=== PATIENT | female | born 1990 | race African-American/Black ===

== ENCOUNTER 2019-03-06 09:46 | Emergency (ER) | payer MEDICAID ==
[~2019-03-06] VITALS: Ht 175.3 cm; Wt 77.3 kg
[~2019-03-06 09:46] MED LIST: FERROUS SULFAT325 MG PO; HYDROCODON-ACE1 EAC7 PO; IBUPROFEN600 MG PO; PRENAVITE1 TAB; PRENAVITE1 TAB PO
[2019-03-06 10:06] VITALS: Ht 175.3 cm; Wt 77.3 kg
[2019-03-06] MEDS ORDERED: PHENERGAN25 M1 PO (10:08)
[2019-03-06 10:31] LABS: BASOPHILS 0.3 % (0-2); EOSINOPHILS 4.6 % (0-7); HEMATOCRIT 35.8 % (36.0-48.0); HEMOGLOBIN 12.8 g/dL (12-16); IMMATURE GRANULOCYTES 0.2 % (0-5); LYMPHOCYTES 21.2 % (15-50); MCH 30.6 pg (26.0-34.0); MCHC 35.8 g/dL (31.0-37.0); MCV 85.6 fL (80.0-100.0); MEAN PLATELET VOLUME 11.4 fL (7.4-10.4); MONOCYTES 6.7 % (2-11); PLATELET COUNT 145 10x3/uL (130-400); RBC 4.18 10x6/uL (4.00-5.40); RDW 14.1 % (11.5-14.5); WBC 6.1 10x3/uL (4.8-10.8)
[2019-03-06 10:53] LABS: ALBUMIN 3.5 g/dL (3.4-5.0); ALKALINE PHOSPHATASE 54 U/L (46-116); ALT (SGPT) 17 U/L (10-68); BILIRUBIN - TOTAL 0.32 mg/dL (0.2-1.3); CALC OSMOLALITY 267 mosm/kg (275-300); CALCIUM 8.5 mg/dL (8.5-10.1); CARBON DIOXIDE 24.3 mmol/L (21.0-32.0); CHLORIDE - SERUM 103 mmol/L (98-107); CREATININE - SERUM 0.7 mg/dL (0.6-1.3); GLUCOSE 84 mg/dL (74-106); POTASSIUM - SERUM 3.4 mmol/L (3.5-5.1); PROTEIN - SERUM 7.8 g/dL (6.4-8.2); SODIUM 136 mmol/L (136-145); UREA NITROGEN 5 mg/dL (7-18); eGFR NON AFRICAN AMERICAN > 90 mL/min (90-120)
[2019-03-06 11:20] LABS: HCG - QUANTITATIVE (MATERNAL) 73652 mIU/mL
[2019-03-06 11:36] LABS: APPEARANCE HAZY (CLEAR); BILIRUBIN NEGATIVE (NEGATIVE); COLOR YELLOW (YELLOW); GLUCOSE NEGATIVE (NEGATIVE); KETONE NEGATIVE (NEGATIVE); NITRITE NEGATIVE (NEGATIVE); PROTEIN NEGATIVE (NEGATIVE); SPECIFIC GRAVITY 1.015 (1.005-1.020); UROBILINOGEN NORMAL (NORMAL); WHITE CELLS - URINE 0-5 /hpf (0-5)
[2019-03-06 11:37] LABS: BACTERIA FEW /hpf (NONE SEEN); EPITHELIAL CELLS 0-5 /hpf (0-5)
[2019-03-06 12:19] VITALS: BP 129/73
== END 2019-03-06 12:25 | disposition home or self-care (01) ==
LOC: D.ER 09:46
PROVIDERS: Family Medicine
DX: O20.9 Hemorrhage in early pregnancy, unspecified (principal); Z3A.10 10 weeks gestation of pregnancy

== ENCOUNTER 2019-04-02 02:30 | Emergency (ER) | payer MEDICAID ==
[~2019-04-02] VITALS: Ht 175.3 cm; Wt 75.0 kg
[~2019-04-02 02:30] MED LIST changes: +PHENERGAN25 M1 PO
[2019-04-02 02:33] VITALS: Ht 175.3 cm; Wt 75.0 kg
[2019-04-02 03:24] LABS: BASOPHILS 0.1 % (0-2); EOSINOPHILS 1.9 % (0-7); HEMOGLOBIN 12.6 g/dL (12-16); IMMATURE GRANULOCYTES 0.3 % (0-5); MCH 30.6 pg (26.0-34.0); MEAN PLATELET VOLUME 11.7 fL (7.4-10.4); MONOCYTES 8.4 % (2-11); NEUTROPHILS 73.3 % (40-80); PLATELET COUNT 158 10x3/uL (130-400); RBC 4.12 10x6/uL (4.00-5.40); RDW 13.8 % (11.5-14.5); WBC 9.3 10x3/uL (4.8-10.8)
[2019-04-02 03:42] LABS: ALBUMIN 3.3 g/dL (3.4-5.0); ALKALINE PHOSPHATASE 65 U/L (46-116); ALT (SGPT) 14 U/L (10-68); CALC OSMOLALITY 269 mosm/kg (275-300); CALCIUM 9.2 mg/dL (8.5-10.1); CARBON DIOXIDE 28.2 mmol/L (21.0-32.0); CHLORIDE - SERUM 100 mmol/L (98-107); CREATININE - SERUM 0.7 mg/dL (0.6-1.3); GLUCOSE 89 mg/dL (74-106); POTASSIUM - SERUM 3.6 mmol/L (3.5-5.1); PROTEIN - SERUM 7.8 g/dL (6.4-8.2); SODIUM 136 mmol/L (136-145); UREA NITROGEN 9 mg/dL (7-18); eGFR NON AFRICAN AMERICAN > 90 mL/min (90-120)
[2019-04-02 04:00] LABS: HCG - QUANTITATIVE (MATERNAL) 49503 mIU/mL
[2019-04-02 04:31] VITALS: BP 140/86
== END 2019-04-02 04:30 | disposition home or self-care (01) ==
LOC: D.ER 02:30
PROVIDERS: Family Medicine
DX: O20.0 Threatened abortion (principal); Z3A.13 13 weeks gestation of pregnancy

== ENCOUNTER → 2019-04-13 10:35 | Outpatient (CLI) | payer MEDICAID ==
[2019-04-02 02:33] VITALS: BMI 24.4
[2019-04-13 12:47] LABS: BASOPHILS 0.3 % (0-2); EOSINOPHILS 3.6 % (0-7); HEMATOCRIT 31.6 % (36.0-48.0); HEMOGLOBIN 11.3 g/dL (12-16); IMMATURE GRANULOCYTES 0.1 % (0-5); LYMPHOCYTES 17.7 % (15-50); MCH 30.5 pg (26.0-34.0); MCHC 35.8 g/dL (31.0-37.0); MCV 85.2 fL (80.0-100.0); MEAN PLATELET VOLUME 12.1 fL (7.4-10.4); MONOCYTES 7.8 % (2-11); NEUTROPHILS 70.5 % (40-80); PLATELET COUNT 151 10x3/uL (130-400); RBC 3.71 10x6/uL (4.00-5.40); RDW 13.4 % (11.5-14.5); WBC 7.9 10x3/uL (4.8-10.8)
[2019-04-13 13:01] LABS: APPEARANCE CLEAR (CLEAR); BILIRUBIN NEGATIVE (NEGATIVE); COLOR STRAW (YELLOW); GLUCOSE NEGATIVE (NEGATIVE); KETONE NEGATIVE (NEGATIVE); NITRITE NEGATIVE (NEGATIVE); PROTEIN NEGATIVE (NEGATIVE); SPECIFIC GRAVITY 1.005 (1.005-1.020); UROBILINOGEN NORMAL (NORMAL)
[2019-04-13 13:03] LABS: UDS - AMPHET NEGATIVE QUAL (NEGATIVE); UDS - BARB NEGATIVE QUAL (NEGATIVE); UDS - BENZO NEGATIVE QUAL (NEGATIVE); UDS - COCAINE NEGATIVE QUAL (NEGATIVE); UDS - OPIATE NEGATIVE QUAL (NEGATIVE); UDS - PCP NEGATIVE QUAL (NEGATIVE); UDS - THC NEGATIVE QUAL (NEGATIVE)
== END | disposition home or self-care (01) ==
LOC: D.LDO 10:35
PROVIDERS: ATTEND Obstetrics & Gynecology
DX: O26.899 Other specified pregnancy related conditions, unspecified trimester (principal); Z3A.00 Weeks of gestation of pregnancy not specified

== ENCOUNTER 2019-04-13 21:08 | Outpatient (CLI) | payer MEDICAID ==
[2019-04-02 02:33] VITALS: BMI 24.4
[2019-04-14 07:08] LABS: BASOPHILS 0.1 % (0-2); EOSINOPHILS 3.8 % (0-7); HEMOGLOBIN 10.8 g/dL (12-16); IMMATURE GRANULOCYTES 0.3 % (0-5); LYMPHOCYTES 20.1 % (15-50); MCH 29.6 pg (26.0-34.0); MCHC 34.8 g/dL (31.0-37.0); MCV 84.9 fL (80.0-100.0); MEAN PLATELET VOLUME 11.9 fL (7.4-10.4); MONOCYTES 8.9 % (2-11); NEUTROPHILS 66.8 % (40-80); PLATELET COUNT 153 10x3/uL (130-400); RBC 3.65 10x6/uL (4.00-5.40); RDW 13.3 % (11.5-14.5); WBC 7.5 10x3/uL (4.8-10.8)
== END 2019-04-14 08:50 | disposition home or self-care (01) ==
LOC: D.LDO 21:08 → D.LD 22:59 → D.LDO 04-14 08:50
PROVIDERS: ATTEND Obstetrics & Gynecology
DX: O26.899 Other specified pregnancy related conditions, unspecified trimester (principal)

== ENCOUNTER 2019-04-22 13:19 | Inpatient (IN) | payer MEDICAID ==
[~2019-04-22] VITALS: Ht 175.3 cm; Wt 79.4 kg
[2019-04-22 14:32] LABS: INR 1.04 (0.85-1.17); PROTIME 13.1 SECONDS (11.6-15.0)
[2019-04-22 14:38] VITALS: BP 123/69; Ht 175.3 cm; Wt 79.4 kg
[2019-04-22 14:59] LABS: HEMATOCRIT 30.9 % (36.0-48.0); HEMOGLOBIN 11.1 g/dL (12-16); MCH 30.6 pg (26.0-34.0); MCHC 35.9 g/dL (31.0-37.0); MCV 85.1 fL (80.0-100.0); RBC 3.63 10x6/uL (4.00-5.40); RDW 13.5 % (11.5-14.5); WBC 7.3 10x3/uL (4.8-10.8)
--- NOTE | 2019-04-22 23:49 | NUR ---
PT MEDICATED FOR CRAMPING. PAIN LEVEL OF 6 AT THIS TIME. WILL CONTIUE TO MONITOR. Marbella UMAÑA RN
--- NOTE | 2019-04-23 01:05 | NUR ---
PT STATES PAIN LEVEL IS DECREASED TO 3 AT THIS TIME. Marbella UMAÑA RN
--- NOTE | 2019-04-23 03:00 | NUR ---
PT RESTING COMFORTABLY AT THIS TIME. RESPS EVEN AND UNLABORED. Marbella UMAÑA RN
--- NOTE | 2019-04-23 05:15 | NUR ---
BLOOD DRAWN AND TO LAB PERSONNEL AT THIS TIME. VITAL SIGNS DONE AT THIS TIME. Marbella UMAÑA RN.
[2019-04-23 05:22] VITALS: BP 139/93
--- NOTE | 2019-04-23 05:47 | NUR ---
PT MEDICATED FOR PAIN AT THIS TIME FOR PAIN LEVEL OF 6.WILL CONTINUE TO MONITOR. Marbella UMAÑA RN
[2019-04-23 05:49] VITALS: BP 115/68
[2019-04-23 06:51] LABS: BASOPHILS 0.2 % (0-2); EOSINOPHILS 2.2 % (0-7); HEMATOCRIT 29.8 % (36.0-48.0); HEMOGLOBIN 10.8 g/dL (12-16); IMMATURE GRANULOCYTES 0.1 % (0-5); LYMPHOCYTES 21.2 % (15-50); MCH 30.5 pg (26.0-34.0); MCHC 36.2 g/dL (31.0-37.0); MCV 84.2 fL (80.0-100.0); MEAN PLATELET VOLUME 13.6 fL (7.4-10.4); MONOCYTES 7.8 % (2-11); NEUTROPHILS 68.5 % (40-80); PLATELET COUNT 131 10x3/uL (130-400); RBC 3.54 10x6/uL (4.00-5.40); RDW 13.5 % (11.5-14.5); WBC 8.1 10x3/uL (4.8-10.8)
--- NOTE | 2019-04-23 06:54 | NUR ---
PT MEDICATED WITH MOTRIN FOR PAIN LEVEL OF 6-7. WILL MONITOR. Marbella UMAÑA RN
[2019-04-23 07:20] VITALS: BP 119/77
--- NOTE | 2019-04-23 08:30 | NUR ---
up to shower.
--- NOTE | 2019-04-23 10:09 | NUR ---
REQUESTING PAIN MEDICATION- CO CRAMPING AND RATES PAIN A 6 ON SCALE OF 0-10. MED GIVEN.
--- NOTE | 2019-04-23 10:11 | NUR ---
STATES THAT HAS SOME SPOTTING - NOT MUCH LOCHIA.
--- NOTE | 2019-04-23 12:15 | NUR ---
REPORT FROM ELI GU RN
[2019-04-23 12:40] VITALS: BP 134/81
--- NOTE | 2019-04-23 12:40 | NUR ---
ASSESSMENT PER FLOW SHEET, VS OBTAINED, SALINE LOCK IN LEFT HAND INTACT WITH NO REDNESS OR EDEMA, PT REPORTS FLATUS, NO BM, VOIDING WITH NO DIFFICULTY, AND SCANT VAG BLEEDING, PT STATES "I HARDLY HAVE ANY", PT RATES PAIN 3/10, DENIES NEED AT THIS TIME FOR PAIN MED, PT REQUESTS DIFFERENT LUNCH TRAY, STATES "I DON'T LIKE ANY OF THAT", INFORMED PT THAT I WILL CALL THE [facility] FOR HER, PT VERBALIZES UNDERSTANDING, DENIES FURTHER NEEDS, S/O AT BEDSIDE
--- NOTE | 2019-04-23 13:00 | NUR ---
[facility] DELIVERS LUNCH TRAY
--- NOTE | 2019-04-23 13:30 | NUR ---
PT FINISHED WITH LUNCH TRAY, PT GETTING READY TO TAKE A WALK, INFORMED PT THAT WAS FINE, AND ALSO INFORMED PT THAT I WILL BE MOVING HER TO ANOTHER ROOM, PT VERBALIZES UNDERSTANDING
--- NOTE | 2019-04-23 13:45 | NUR ---
PT BACK TO ROOM, PT TRANSFERRED VIA AMB TO ROOM 1257, ALL BELONGINGS WITH PT, S/O AT SIDE, PT ORIENTED TO ROOM, BATH TOWELS PROVIDED TO PT, AND BEDDING PROVIDED TO FOB, FOB SHOWN NOURISHMENT CENTER AND OUT TO THE FRONT ENTRANCE, SANDWICH TRAY SERVED TO PT BECAUSE PT STATES "THEY ONLY GAVE ME 3 CHICKEN STRIPS", PT DENIES FURTHER NEEDS
--- NOTE | 2019-04-23 14:10 | NUR ---
PT SITTING UP IN BED, SCD'S APPLIED AND WORKING PROPERLY, S/O AT BEDSIDE
--- NOTE | 2019-04-23 14:57 | NUR ---
PT CIRCLE BEVELER LIGHT, C/O PAIN AND CRAMPING, ADM MOTRIN AND NORCO PER MD ORDERS, SEE EMAR, PT DENIES FURTHER NEEDS
[2019-04-23 16:22] VITALS: BP 112/70
--- NOTE | 2019-04-23 16:22 | NUR ---
PT VISITING WITH FOB AND FRIEND, VS OBTAINED, PT DENIES NEEDS OR PAIN AT THIS TIME
--- NOTE | 2019-04-23 18:12 | NUR ---
PT OUT OF ROOM AT THIS TIME
--- NOTE | 2019-04-23 19:06 | NUR ---
RESP NOTIFIED FOR EKG
[2019-04-23 19:33] VITALS: BP 132/83
--- NOTE | 2019-04-23 19:33 | NUR ---
SHIFT ASSESSMENT COMPLETED PER FLOWSHEET. VSS. C/O PAIN 5/10 VAGINAL SORENESS AND ABD CRAMPING, NORCO GIVEN PER ORDER AND REQUEST. FUNDUN FIRM, MIDLINE AND U2 WITH SMALL RUBRA LOCHIA, NO CLOTS NOTED. SL TO LT HAND FLUSHES WITHOUT DIFFICULTY, NO S/S OF INFILTRATION NOTED. REPORTS THAT SHE IS VOIDING AND PASSING FLATUS WITHOUT DIFFICULTY. PLAN OF CARE DISCUSSED WITH PT AND SIGNIFICANT OTHER BOTH VERBALIZE UNDERSTANDING. DISCUSSED REMOVAL OF FETUS, PT STATES THAT SHE AND SIGNIFICANT OTHER HAVE BEEN DISCUSSING 2 HOMES IN [place] AND WILL NOTIFY RN WHEN FINAL DECISION IS MADE. EDUCATED PT ON NEED TO WEAR GOOD SUPPORT BRA, AVOIDING BREAST STIMULATION, AND WARM WATER WHEN SHOWERING TO PREVENT BREASTMILK PRODUCTION. EDUCATED ON PERINEAL CARE AND REFRAINING FROM INTERCOURSE AND USING ANYTHING IN VAGINAL VAULT FOR AT LEAST 6 WEEKS, VERBALIZES UNDERSTANDING AND DENIES QUESTIONS. BED IN LOW POSITION WITH UPPER SIDE RAILS RAISED X2. CALL LIGHT AND PHONE WITHIN REACH. WILL CONTINUE TO MONITOR.
--- NOTE | 2019-04-23 20:15 | NUR ---
PAIN REASSESSMENT COMPLETED, 11/16. PT REQUEST [facility] [place] BE CONTACTED FOR REMOVAL OF FETUS. REPORTS THAT SHE JUST VOIDED, SCANT RUBRA LOCHIA NOTED TO PERIPAD, NO CLOTS NOTED. BED IN LOW POSITION WITH UPPER SIDE RAILS RAISED X2. CALL LIGHT AND PHONE WITHIN REACH. PT STATES THAT SHE AND SIGNIFICANT OTHER ARE GOING TO WALK ON UNIT. STEADY GAIT NOTED. WILL CONTINUE TO MONITOR.
--- NOTE | 2019-04-23 20:24 | NUR ---
AI, [employer] FILTERS INSPECTOR OF [facility] NOTIFIED OF NEED FOR FETUS REMOVAL PER PT REQUEST. STATES THAT HE WILL BE EN R[facility] TO [facility].
--- NOTE | 2019-04-23 21:27 | NUR ---
SITTING IN SEMI-FOWLERS POSITION PLAYING ON CELL PHONE AND WATCHING TV. DENIES PAIN AND NEEDS. REFUSES FLUSH TO PIV AT THIS TIME. BED IN LOW POSITION WITH UPPER SIDE RAILS RAISED X2. CALL LIGHT AND PHONE WITHIN REACH. WILL CONTINUE TO MONITOR.
--- NOTE | 2019-04-23 22:26 | NUR ---
[facility] TO UNIT FOR REMOVAL OF FETUS. PT NOTIFIED AND STATES THAT SHE DOES NOT WISH TO SEE INFANT PRIOR TO REMOVAL. RELEASED TO [facility] [employer].
--- NOTE | 2019-04-23 22:37 | NUR ---
SITTING IN SEMI-FOWLERS POSITION WATCHING TV AND LOOKING AT CELL PHONE. DENIES NEEDS AT THIS TIME. BED IN LOW POSITION WITH UPPER SIDE RAILS RAISED X2. CALL LIGHT AND PHONE WITHIN REACH. REFUSES SCD'S. WILL CONTINUE TO MONITOR.
--- NOTE | 2019-04-23 23:27 | NUR ---
C/O VAGINAL SORENESS AND ABD CRAMPING 02/13. NORCO GIVEN PER ORDER AND PT REQUEST. CRANBERRY JUICE PROVIDED. DENIES ADDITIONAL NEEDS. BED IN LOW POSITION WITH UPPER SIDE RAILS RAISED X2. SIGNIFICANT OTHER AT BEDSIDE, SUPPORTIVE AND ATTENTIVE TO PT NEEDS. LT HAND SL REMOVED PER PT REQUEST, TIP INTACT, BANDAID OVER INSERTION SITE.
--- NOTE | 2019-04-24 00:13 | NUR ---
PAIN REASSESSMENT COMPLETED. 10/16. DENIES NEEDS. SIGNIFICANT OTHER RESTING ON COUCH AT BEDSIDE. CONTINUES TO REFUSE SCD'S. BED IN LOW POSITION WITH UPPER SIDE RAILS RAISED X2. CALL LIGHT AND PHONE WITHIN REACH. WILL CONTINUE TO MONITOR AND ASSIST PRN.
--- NOTE | 2019-04-24 02:19 | NUR ---
UP TO BATHROOM AT THIS TIME. SCANT RUBRA LOCHIA, NO CLOTS NOTED. CRANBERRY JUICE PROVIDED PER PT REQUEST. PAIN 3/10, VAGINAL SORENESS AND ABD CRAMPING, MOTRIN OFFERED AND DECLINED. DENIES ADDITIONAL NEEDS. SIGNIFICANT OTHER AT BEDSIDE RESTING. BED IN LOW POSITION WITH UPPER SIDE RAILS RAISED X2. CALL LIGHT AND PHONE WITHIN REACH. WILL CONTINUE TO MONITOR AND ASSIST PRN.
--- NOTE | 2019-04-24 03:32 | NUR ---
C/O VAGINAL SORENESS AND ABD CRAMPING, 04/15. NORCO GIVEN PER ORDER AND PT REQUEST. CRANBERRY JUICE PROVIDED. DENIES ADDITIONAL NEEDS. SIGNIFICANT OTHER RESTING ON COUCH AT BEDSIDE. BED IN LOW POSITION WITH UPPER SIDE RAILS RAISED X2. CALL LIGHT AND PHONE WITHIN REACH. WILL CONTINUE TO MONITOR AND ASSIST PRN. CONTINUES TO REFUSE SCD'S.
--- NOTE | 2019-04-24 04:11 | NUR ---
PAIN REASSESSMENT COMPLETED. PT LAYING ON RIGHT SIDE RESTING WITH EYES CLOSED. RESPIRATIONS REGULAR AND UNLABORED, NO S/S OF DISTRESS NOTED. BED IN LOW POSITION WITH UPPER SIDE RAILS RAISED X2. CALL LIGHT AND PHONE WITHIN REACH. SIGNIFICANT OTHER RESTING ON COUCH AT BEDSIDE. WILL CONTINUE TO MONITOR.
--- NOTE | 2019-04-24 05:55 | NUR ---
LAYING ON LEFT SIDE RESTING WITH EYES CLOSED. AROUSES TO VOICE. REQUESTS TO WAIT FOR D/C UNTIL 0800. DENIES PAIN AND NEEDS AT THIS TIME. BED IN LOW POSITION WITH UPPER SIDE RAILS RAISED X2. CALL LIGHT AND PHONE WITHIN REACH.
[2019-04-24 06:09] LABS: RAPID PLASMA REAGIN Non Reactive (Non Reactive)
[2019-04-24] MEDS ORDERED: HYDROCODON-ACE1 EAC7 PO (06:16)
[2019-04-24] MEDS ORDERED: VIBRAMYCIN 100100 MG PO (06:17)
--- NOTE | 2019-04-24 09:22 | NUR ---
This rn to room to go over discharge instructions. pt has gone back to bed and states "I'm just not ready yet" request that she call when awake and ready. Pain med given per pt request and pain rating at 7/10. side rails up x 2 with call light in reach. Sig other on couch sleeping.
[2019-04-24 09:27] VITALS: BP 123/77
--- NOTE | 2019-04-24 10:00 | NUR ---
PAIN REASSESSMENT, RATES AT 0/10. PT UP WALKING AROUND ROOM STATES SHE IS GOING TO SHOWER THAN WILL BE READY FOR DISCHARGE, REQUEST MADE THAT SHE USE CALL LIGHT WHEN READY FOR NURSE.
--- NOTE | 2019-04-24 10:30 | NUR ---
VERBAL AND WRITTEN D/C INSTUCTIONS GONE OVER. PT PROVIDED WITH WRITTEN SCRIPT FOR NORCO 5/325MG AND DOXCYCLINE WITH PRINTED MED SHEETS ON EACH. SIG OTHER PROVIDED WITH EXCUSE FOR WORK THAT COVERS 04/22/19-04/25/19. PT DENIES ANY QUESTIONS OR CONCERNS AND STATES UNDERSTANDING OF S/S INFECTION AND ELEVATED BP AND TO RETURN TO HOSPTIAL IF SHE HAS ANY OF THESE. REFUSES WHEELCHAIR, WALKED TO FRONT BY THIS RN. HOME WITH SIG OTHER BY PRIVATE CAR.
== END 2019-04-24 10:30 | disposition home or self-care (01) | DRG 807 ==
LOC: D.LD 13:19
PROVIDERS: ADMIT Obstetrics & Gynecology; ATTEND Obstetrics & Gynecology
PROC: 10E0XZZ Delivery of Products of Conception, External Approach (ICD-10-PCS; principal; 2019-04-22)
DX: O41.8X90 Other specified disorders of amniotic fluid and membranes, unspecified trimester, not applicable or unspecified (principal); Z37.0 Single live birth; Z3A.16 16 weeks gestation of pregnancy; P07.01 Extremely low birth weight newborn, less than 500 grams; P07.21 Extreme immaturity of newborn, gestational age less than 23 completed weeks

== ENCOUNTER 2019-08-08 00:23 | Emergency (ER) | payer MEDICAID ==
[~2019-08-08] VITALS: Ht 175.3 cm; Wt 75.0 kg
[~2019-08-08 00:23] MED LIST changes: +VIBRAMYCIN 100100 MG PO
[2019-08-08 00:31] VITALS: Ht 175.3 cm; Wt 75.0 kg
[2019-08-08] MEDS ORDERED: TORADOL10 MG PO (01:14)
[2019-08-08 01:36] VITALS: BP 142/84
== END 2019-08-08 01:36 | disposition home or self-care (01) ==
LOC: D.ER 00:23
DX: S16.1XXA Strain of muscle, fascia and tendon at neck level, initial encounter (principal); V49.9XXA Car occupant (driver) (passenger) injured in unspecified traffic accident, initial encounter

== ENCOUNTER 2019-10-01 20:03 | Emergency (ER) | payer MEDICAID ==
[~2019-10-01] VITALS: Ht 175.3 cm; Wt 74.8 kg
[~2019-10-01 20:03] MED LIST changes: +TORADOL10 MG PO
[2019-10-01 20:37] VITALS: BP 119/74; Ht 175.3 cm; Wt 74.8 kg
[2019-10-01 21:31] LABS: APPEARANCE CLEAR (CLEAR); BILIRUBIN NEGATIVE (NEGATIVE); COLOR YELLOW (YELLOW); GLUCOSE NEGATIVE (NEGATIVE); KETONE NEGATIVE (NEGATIVE); NITRITE NEGATIVE (NEGATIVE); PROTEIN NEGATIVE (NEGATIVE); SPECIFIC GRAVITY 1.015 (1.005-1.020); UROBILINOGEN NORMAL (NORMAL)
[2019-10-01 21:32] LABS: HCG URINE NEGATIVE (NEGATIVE)
== END 2019-10-01 22:00 | disposition home or self-care (01) ==
LOC: D.ER 20:03
PROVIDERS: Family Medicine
DX: Z20.2 Contact with and (suspected) exposure to infections with a predominantly sexual mode of transmission (principal); I10 Essential (primary) hypertension; Z72.0 Tobacco use